=== PATIENT | female | born 1970 | race Caucasian/White ===

== ENCOUNTER 2023-01-24 10:26 | Emergency (ER) | payer BC ==
[2023-01-24] MEDS ORDERED: Sodium Chloride 0.9% 10 ML Syringe FLUSH PRN (10:58)
[2023-01-24 12:02] LABS: BASOPHILS ABSOLUTE AUTO 0.02 K/mm3 (0.01-0.08); BASOPHILS PERCENT AUTO 0.3 % (0.1-1.2); EOSINOPHILS ABSOLUTE AUTO 0.27 K/mm3 (0.04-0.36); EOSINOPHILS PERCENT AUTO 3.8 (0.7-5.8); HEMATOCRIT 41.4 % (34.1-44.9); HEMOGLOBIN 14.1 gm/dl (11.2-15.7); IMMATURE GRAN ABSOLUTE AUTO 0.01 K/mm3 (0.00-0.10); IMMATURE GRAN PERCENT AUTO 0.1 % (<=1.0); LYMPHOCYTES ABSOLUTE AUTO 2.14 K/mm3 (1.18-3.74); LYMPHOCYTES PERCENT AUTO 29.9 % (19.3-51.7); MEAN CORPUSCULAR HEMOGLOBIN 27.9 pg (25.6-32.2); MEAN CORPUSCULAR HGB CONC 34.1 g/dl (32.2-35.5); MEAN PLATELET VOLUME 10.3 fl (9.4-12.3); MONOCYTES PERCENT AUTO 9.8 % (4.7-12.5); NEUTROPHILS ABSOLUTE AUTO 4.02 K/mm3 (1.56-6.13); NEUTROPHILS PERCENT AUTO 56.1 % (34.0-71.1); PLATELET COUNT,PLT 224 K/mm3 (182-369); RED BLOOD CELL COUNT 5.05 M/mm3 (3.98-5.22); WHITE BLOOD CELL COUNT,WBC 7.16 K/mm3 (3.98-10.04)
[2023-01-24 12:35] LABS: BILIRUBIN TOTAL 0.4 mg/dL (0.2-1.0)
[2023-01-24 12:44] LABS: A/G RATIO 0.8 (1-2); ALBUMIN 3.3 g/dl (3.4-5.0); BUN/CREATININE RATIO 17.1 (14-18); CALCIUM 10.1 mg/dL (8.5-10.1); CREATININE 0.7 mg/dL (0.55-1.02); EST CRCL DRUG DOSING (CG) 83.03 mL/min; PROTEIN TOTAL,TP 7.7 g/dl (6.4-8.2)
[2023-01-24] MEDS ORDERED: Heparin Sodium 5,000 Units/ML Vial IVPUSH ONE (13:50)
[2023-01-24] MEDS ORDERED: Aspirin 81 MG Tab.Chew PO ONE (13:54)
[2023-01-24] MEDS ORDERED: atorvaSTATin 40 MG Tab PO ONE (13:54)
[2023-01-24] MEDS ORDERED: Losartan 25 MG Tab PO ONE (13:55)
[2023-01-24] MEDS ORDERED: Heparin Sodium/D5W 25,000 UNITS/500 ML BAG IV SCH (14:00)
== END 2023-01-24 14:30 ==
LOC: JD.ED 10:26
DX: I24.9 Acute ischemic heart disease, unspecified (principal); I10 Essential (primary) hypertension
CPT/HCPCS: 36415; 71045; 80053; 83690; 84484; 85025; 85049; 85379; 85730; 93005; 96365; 99285; A9270; J1644